=== PATIENT | female | born 2000 | race Caucasian/White ===

== ENCOUNTER 2021-05-13 10:34 | Emergency (ER) | payer OTHER ==
[2021-05-13] MEDS ORDERED: Sodium Chloride 0.9% 1000 ML 1,000 ML IV STA (11:00)
[2021-05-13] MEDS ORDERED: Zofran 4 MG/2 ML VIAL IV ONE (11:00)
[2021-05-13] MEDS ORDERED: DECADRON 10MG INJ. IV ONE (11:01)
[2021-05-13] MEDS ORDERED: Zofran 4 MG/2 ML VIAL ONE (11:12)
[2021-05-13] MEDS ORDERED: DECADRON 10MG INJ. ONE (11:12)
[2021-05-13] MEDS ORDERED: Sodium Chloride 0.9% 1000 ML 1,000 ML ONE (11:12)
[2021-05-13 11:30] LABS: Appearance CLOUDY (CLEAR); Bacteria FEW /HPF (NEGATIVE); Bilirubin NEGATIVE (NEGATIVE); Blood NEGATIVE Ery/ul (0-5); Epithelial Cells MANY /HPF (FEW); Glucose NEGATIVE (NEGATIVE); Ketones NEGATIVE (NEGATIVE); Leukocyte Esterase LARGE (NEGATIVE); Mucus SLIGHT /HPF (NEGATIVE); Nitrite NEGATIVE (NEGATIVE); Protein,Urine Dip NEGATIVE (Negative); Specific Gravity 1.014 (1.005-1.025); Urobilinogen 4 mg/dL (0-1)
[2021-05-13 11:32] LABS: Hematocrit 34.4 % (35-47); Hemoglobin 11.6 gm/dl (12.0-16.0); Mean Cell Volume 91.5 fl (78-100); Mean Corpuscular Hemoglobin 30.9 pg (26-32); Mean Corpuscular Hgb Concent. 33.7 g/dl (32-36); Mean Platelet Volume 10.6 fl (7.5-11.0); Platelet Count 222 K/mm3 (150-450); Red Blood Count 3.76 M/mm3 (4.1-5.4); Red Cell Distribution Width 13.3 % (11.5-14.0); White Blood Count 10.1 K/mm3 (4.0-10.5)
[2021-05-13 11:35] LABS: ALBUMIN 3.5 g/dL (3.5-5.0); ALKALINE PHOSPHATASE 57 U/L (38-126); ANION GAP 11.4 MEQ/L (5-15); CHLORIDE 104 mmol/L (98-107); Calcium 8.8 mg/dL (8.4-10.2); Carbon Dioxide 23 mmol/L (22-30); Creatinine 1 0.29 mg/dL (0.52-1.04); EST GLOMERULAR FILTRATION RATE > 60.0 ML/MIN; Glucose 94 mg/dL (74-106); Potassium 3.3 mmol/L (3.5-5.1); SGOT/AST 26 U/L (14-36); SGPT/ALT 22 U/L (0-35); SODIUM 135 mmol/L (137-145); Total Protein 6.8 g/dL (6.3-8.2)
[2021-05-13 11:44] LABS: BLOOD UREA NITROGEN 2 mg/dL (7-17)
--- NOTE | 2021-05-13 11:47 | ERPHSYRPT ---
- History of Present Illness Time Seen by Provider: 05/13/21 10:37 Source: patient Exam Limitations: no limitations Patient Subjective Stated Complaint: Patient c/o cough x 2 months, worsened this morning. States she tested positive for COVID /. Reports no fevers. Cannot smell. States her throat started hurting this morning. Has a "running nose" and mucus is yellow. Triage Nursing Assessment: Patient to ED with complaints of congestion, cough, and sore throat. Patient breathing easy at this time. VS wnl, occasional wet cough. Breath sounds clear bilaterally. Physician History: Location: generalized Quality: Malaise, sore throat Radiation: none Severity: mild Duration: several weeks Timing: gradual Modifying factors/associated signs and symptoms: Previous positive at home COVID test Patient here with viral pharyngitis in setting of a positive COVID test. Also complains of coughing. Patient is 16 weeks . She has not received the vaccine. She has not seen her PCP for this or her BEHAVIORAL HEALTH COUNSELOR. Timing/Duration: week(s) Severity: mild Modifying Factors: Improves With: other Associated Symptoms: denies symptoms Allergies/Adverse Reactions: amoxicillin [Amoxicillin] Allergy (Mild, Verified 05/13/21 11:01) Penicillins Allergy (Mild, Verified 05/13/21 11:01) Hx Tetanus, Diphtheria Vaccination/Date Given: Yes Hx Influenza Vaccination/Date Given: No Hx Pneumococcal Vaccination/Date Given: No Immunizations Up to Date: Yes Travel Risk - International Travel Have you traveled outside of the country in past 3 weeks: No - Coronavirus Screening Are you exhibiting any of the following symptoms?: Yes Symptoms: Cough: New Onset, Shortness of Breath, Loss of Taste or Smell - Vaccine Status Have you recieved a Covid-19 vaccination: No - Review of Systems Constitutional: No Fever, No Chills Eyes: No Symptoms Ears, Nose, & Throat: No Symptoms, Other (sore throat ) Respiratory: Cough, No Dyspnea Cardiac: No Chest Pain, No Edema, No Syncope Abdominal/Gastrointestinal: No Abdominal Pain, No Nausea, No Vomiting, No Diarrhea Genitourinary Symptoms: No Dysuria Musculoskeletal: No Back Pain, No Neck Pain Skin: No Rash Neurological: No Dizziness, No Focal Weakness, No Sensory Changes Psychological: No Symptoms Endocrine: No Symptoms All Other Systems: Reviewed and Negative - Past Medical History Pertinent Past Medical History: Yes Respiratory History: Asthma - Past Surgical History Past Surgical History: Yes Musculoskeletal: Orthopedic Surgery Other Surgical History: wrist surgery 2011 - Social History Smoking Status: Never smoker Exposure to second hand smoke: Yes Drug Use: none Patient Lives Alone: No - Female History Hx Last Menstrual Period: 01/14/21 Hx Now: Yes Expected Date of Delivery: 10/23/21 Gestational Age: 14 - Nursing Vital Signs Nursing Vital Signs: Initial Vital Signs Temperature 98 F 05/13/21 10:46 Pulse Rate 110 H 05/13/21 10:46 Respiratory Rate 18 05/13/21 10:46 Blood Pressure 151/93 05/13/21 10:46 O2 Sat by Pulse Oximetry 97 05/13/21 10:46 Pain Scale Pain Intensity 0 - Physical Exam General Appearance: no apparent distress, alert Eye Exam: PERRL/EOMI, eyes nml inspection Ears, Nose, Throat Exam: normal ENT inspection, TMs normal, pharynx normal, moist mucous membranes Neck Exam: normal inspection, non-tender, supple, full range of motion Respiratory Exam: normal breath sounds, lungs clear, No respiratory distress Cardiovascular Exam: regular rate/rhythm, normal heart sounds, normal peripheral pulses Gastrointestinal/Abdomen Exam: soft, normal bowel sounds, No tenderness, No mass Back Exam: normal inspection, normal range of motion, No CVA tenderness, No vertebral tenderness Extremity Exam: normal inspection, normal range of motion, pelvis stable Neurologic Exam: alert, oriented x 3, cooperative, normal mood/affect, nml cereb ellar function, nml station & gait, sensation nml, No motor deficits Skin Exam: normal color, warm, dry, No rash Lymphatic Exam: No adenopathy SpO2 Interpretation: normal SpO2: 97 Comments: 05/13/21 11:46 No trismus, able to fully extend neck, normal range of motion of neck without pain. Uvula is midline, no swelling of the mouth, noraml oropharynx. No exudate, no signs of meningitis, no floor of mouth swelling, no hot potato voice on exam. No buccal swelling, no gum bleeding, no signs of tooth abscess/infection. No obvious deformity, sensation intact, 2+ capillary refill, 2 point tactile discrimination intact. 5 out of 5 strength. Full range of motion without pain. Compartments are soft, nontender. Overlying skin shows no tenting, bruising, ecchymosis. - Course Nursing assessment & vital signs reviewed: Yes EKG Interpreted by Me: Sinus Rhythm Ordered Tests: Active Orders 24 hr Category Date Time Status EKG-ER Only STAT Care 05/13/21 11:00 Completed IV Insertion STAT Care 05/13/21 11:00 Completed CBC W DIFF Stat Lab 05/13/21 11:20 Completed CMP Stat Lab 05/13/21 11:20 Completed CULTURE,URINE Stat Lab 05/13/21 11:20 Received Manual Differential NC Stat Lab 05/13/21 11:20 Completed UA W/RFX UR CULTURE Stat Lab 05/13/21 11:20 Completed Medication Summary Discontinued Medications Generic Name Dose Route Start Last Admin Trade Name Freq PRN Reason Stop Dose Admin Dexamethasone Sodium Phosphate 8 mg 05/13/21 11:01 05/13/21 11:13 Dexamethasone Sod Phosphate 10 Mg/Ml IV 05/13/21 11:02 8 mg STAT ONE Administration Dexamethasone Sodium Phosphate Confirm 05/13/21 11:12 Dexamethasone Sod Phosphate 10 Mg/Ml Administered 05/13/21 11:13 Dose 10 mg .ROUTE .STK-MED ONE Sodium Chloride 1,000 mls @ 999 mls/hr 05/13/21 11:00 05/13/21 11:13 Sodium Chloride 0.9% 1000 Ml IV 05/13/21 12:00 999 mls/hr .Q1H1M STA Administration Sodium Chloride Confirm 05/13/21 11:12 Sodium Chloride 0.9% 1000 Ml Administered 05/13/21 11:13 Dose 1,000 mls @ ud .ROUTE .STK-MED ONE Ondansetron HCl 4 mg 05/13/21 11:00 05/13/21 11:14 Ondansetron Hcl 4 Mg/2 Ml Vial IV 05/13/21 11:01 4 mg STAT ONE Administration Ondansetron HCl Confirm 05/13/21 11:12 Ondansetron Hcl 4 Mg/2 Ml Vial Administered 05/13/21 11:13 Dose 4 mg .ROUTE .STK-MED ONE Lab/Rad Data: Laboratory Result Diagrams 05/13/21 11:20 05/13/21 11:20 Laboratory Results 05/13/21 05/13/21 05/13/21 Range/Units 11:20 11:20 11:20 WBC 10.1 (4.0-10.5) K/mm3 RBC 3.76 L (4.1-5.4) M/mm3 Hgb 11.6 L (12.0-16.0) gm/dl Hct 34.4 L (35-47) % MCV 91.5 (78-100) fl MCH 30.9 (26-32) pg MCHC 33.7 (32-36) g/dl RDW 13.3 (11.5-14.0) % Plt Count 222 (150-450) K/mm3 MPV 10.6 (7.5-11.0) fl Segmented Neutrophils 53 (36.0-66.0) % Band Neutrophils 1 (0.0-2.0) % Lymphocytes (Manual) 42 (24-44) % Monocytes (Manual) 3 (0.0-12.0) % Eosinophils (Manual) 1 (0.00-3.0) % Toxic Granulation 1+ Platelet Estimate NORMAL (NORMAL) RBC Morphology NORMAL Sodium 135 L (137-145) mmol/L Potassium 3.3 L (3.5-5.1) mmol/L Chloride 104 (98-107) mmol/L Carbon Dioxide 23 (22-30) mmol/L Anion Gap 11.4 (5-15) MEQ/L BUN 2 L (7-17) mg/dL Creatinine 0.29 L (0.52-1.04) mg/dL Estimated GFR > 60.0 ML/MIN Glucose 94 (74-106) mg/dL Calcium 8.8 (8.4-10.2) mg/dL Total Bilirubin 0.90 (0.2-1.3) mg/dL AST 26 (14-36) U/L ALT 22 (0-35) U/L Alkaline Phosphatase 57 (38-126) U/L Serum Total Protein 6.8 (6.3-8.2) g/dL Albumin 3.5 (3.5-5.0) g/dL Urine Color SAMUEL (YELLOW) Urine Appearance CLOUDY (CLEAR) Urine pH 6.0 (5-6) Ur Specific [place] 1.014 (1.005-1.025) Urine Protein NEGATIVE (Negative) Urine Ketones NEGATIVE (NEGATIVE) Urine Blood NEGATIVE (0-5) [place]/ul Urine Nitrite NEGATIVE (NEGATIVE) Urine Bilirubin NEGATIVE (NEGATIVE) Urine Urobilinogen 4 (0-1) mg/dL Ur Leukocyte Esterase LARGE (NEGATIVE) Urine WBC (Auto) 11-15 (0-5) /HPF Urine RBC (Auto) 6-10 (0-2) /HPF U Epithel Cells (Auto) MANY (FEW) /HPF Urine Bacteria (Auto) FEW (NEGATIVE) /HPF Urine Mucus (Auto) SLIGHT (NEGATIVE) /HPF Urine Culture Reflexed YES (NO) Urine Glucose NEGATIVE (NEGATIVE) mg/dL - Progress Progress: improved Progress Note: 05/13/21 11:46 We will start an IV, obtain basic labs. Will give fluids, steroids. Lungs sound clear. Therefore will not give a breathing treatment or obtain a chest x- ray. In the setting of we also want to avoid radiation. Very low suspicion for pulmonary embolism or other blood clot. No other falls or trauma. 05/13/21 15:31 Patient feels improved with medications here. Plan to discharge patient home at this point time. Follow-up with her PCP. She return here for any new or changing symptoms. Plan of care was discussed with patient and all questions answered. The patient is agreeable to be discharged home and both verbal and printed discharge instructions were provided.The patient agreed to seek outpatient follow up as discussed. The patient was given strict instructions to return to the emergency department for worsening symptoms or any other emergent concerns. The patient verbalized understanding. - Departure Departure Disposition: Home Clinical Impression: Viral pharyngitis Condition: Stable Critical Care Time: No Referrals: RAMA BERNARD MD [Primary Care Provider] - Follow up/PCP as directed Instructions: Cough, Adult (DC) Additional Instructions: See your PCP and BEHAVIORAL HEALTH COUNSELOR for reexam in 24 to 48 hours. Return here for any new or changing symptoms. Follow-up on the urine culture for your urinalysis today with your BEHAVIORAL HEALTH COUNSELOR.
[2021-05-13 12:32] LABS: BAND 1 % (0.0-2.0); Eosinophil 1 % (0.00-3.0); Lymphocytes 42 % (24-44); Monocyte 3 % (0.0-12.0); Neutrophils 53 % (36.0-66.0); Platelet Estimate NORMAL (NORMAL); Total Cells Counted 100; Toxic Granulation 1+
[2021-05-13 12:37] VITALS: BP 120/81; PULSE 93
[2021-05-13 15:32] VITALS: O2SAT 97
== END 2021-05-13 12:54 | disposition home or self-care (01) ==
LOC: ED 10:34
DX: O98.512 Other viral diseases complicating pregnancy, second trimester (principal); Z3A.16 16 weeks gestation of pregnancy; J02.8 Acute pharyngitis due to other specified organisms; B97.29 Other coronavirus as the cause of diseases classified elsewhere; U07.1 COVID-19; R05.9 Cough, unspecified
CPT/HCPCS: 36000; 36415; 80053; 81001; 85025; 87086; 93005; 96374; 96375; 99284; U0003; J1100; J2405

== ENCOUNTER 2021-10-23 11:01 | Inpatient (IN) | payer OTHER ==
[2021-10-23] MEDS ORDERED: TYLENOL EXTRA STRENGTH 500 MG PO PRN (17:00)
[2021-10-23] MEDS ORDERED: PITOCIN 30 UNITS/ LR 500 ML 30 UNITS/500 ML PLAST..BAG IV SCH (17:00)
[2021-10-23] MEDS ORDERED: Ephedrine Sulfate 50 MG/ML IV PRN (17:00)
[2021-10-23] MEDS ORDERED: Zofran 4 MG/2 ML VIAL IV PRN (17:00)
[2021-10-23] MEDS ORDERED: STADOL 2 MG IV PRN (17:00)
[2021-10-23] MEDS ORDERED: Cervidil 10 MG VAG SCH (17:00)
[2021-10-23] MEDS ORDERED: Lactated Ringers 1,000 ML IV ONE (17:00)
[2021-10-23] MEDS ORDERED: BRETHINE 1 MG/ML SQ PRN (17:00)
[2021-10-23] MEDS ORDERED: Nubain 10 MG/ML IV PRN (18:00)
[2021-10-23] MEDS ORDERED: FENTANYL 2 MCG-BUPIV 0.125%-NS 250 ML Epidur 250 ML EPIDURAL SCH (18:00)
[2021-10-23 18:14] LABS: Absolute Neutrophil Ct (ANC) 9.02 x10^3/uL (1.4-6.9); Basophil (Absolute #) 0.04 x10^3/uL (0-0.4); Eosinophil % 0.3 % (0.00-5.0); Eosinophil (Absolute #) 0.04 x10^3/uL (0-0.5); Hematocrit 35.2 % (35-47); Hemoglobin 11.8 g/dL (12.0-16.0); Lymphocyte (Absolute #) 2.93 x10^3/uL (1.0-4.6); Lymphocytes % 22.3 % (24.0-44.0); Mean Cell Volume 92.9 fL (78-100); Mean Corpuscular Hemoglobin 31.1 pg (26-32); Mean Corpuscular Hgb Concent. 33.5 g/dL (32-36); Mean Platelet Volume 11.4 fL (7.5-11.0); Monocytes % 7.6 % (0.0-12.0); Neutrophil % 68.6 % (36.0-66.0); Platelet Count 233 x10^3/uL (150-450); Red Blood Count 3.79 x10^6/uL (4.1-5.4); Red Cell Distribution Width 13.6 % (11.5-14.0); White Blood Count 13.2 x10^3/uL (4.0-10.5)
[2021-10-23 19:01] LABS: ABO TYPING A; Antibody Screen NEGATIVE (NEGATIVE); RH TYPING POSITIVE
[2021-10-23 22:55] LABS: Amphetamine,Urine NEGATIVE (NEGATIVE); Barbiturate,Urine NEGATIVE (NEGATIVE); Benzodiazepine,Urine NEGATIVE (NEGATIVE); Cocaine,Urine NEGATIVE (NEGATIVE); Methadone,Urine NEGATIVE (NEGATIVE); Opiate,Urine NEGATIVE (NEGATIVE); PCP,Urine NEGATIVE (NEGATIVE); THC,Urine NEGATIVE (NEGATIVE)
[2021-10-24] MEDS: Lactated Ringers 1,000 ML IV SCH ×5 (03:30→16:35)
[2021-10-24] MEDS ORDERED: PITOCIN 30 UNITS/ LR 500 ML 30 UNITS/500 ML PLAST..BAG IV SCH (08:00)
[2021-10-24 13:46] LABS: Bacteria FEW /HPF (NEGATIVE); Crystals Unidentified 25-50 /HPF (NEGATIVE); Epithelial Cells RARE /HPF (FEW); Mucus SLIGHT /HPF (NEGATIVE)
[2021-10-24 13:47] LABS: Appearance SLIGHTLY CLOUDY (CLEAR); Bilirubin SMALL (NEGATIVE); Glucose NEGATIVE (NEGATIVE); Ketones TRACE (NEGATIVE); Nitrite NEGATIVE (NEGATIVE); Ph 6.5 (5-6); Protein,Urine Dip 30 (Negative); RBC >101 /HPF (0-2); RBC LARGE Ery/ul (0-5); Urobilinogen >=8.0 mg/dL (0-1)
[2021-10-24 13:48] LABS: Dipstick done @ ? MAIN LAB; Urine Cultured Indicated? YES
[2021-10-24] MEDS ORDERED: Nubain 10 MG/ML IV PRN (16:46)
[2021-10-24] MEDS ORDERED: PERCOCET TABLET 5/325MG PO PRN (16:46)
[2021-10-24] MEDS ORDERED: MORPHINE SULFATE 2 MG INJ IV PRN (16:46)
[2021-10-24] MEDS ORDERED: HOLD NARCOTIC ANALGESICS AND SEDATIVES X24 HR MC PRN (16:46)
[2021-10-24] MEDS ORDERED: BENADRYL 50 MG/ML IV PRN (16:46)
[2021-10-24] MEDS ORDERED: Narcan 0.4 MG/ML IV PRN (16:46)
[2021-10-24] MEDS ORDERED: DEMEROL 50 MG IV PRN ×2 (16:46→18:23)
[2021-10-24] MEDS ORDERED: CLARITIN 10 MG PO PRN (16:46)
[2021-10-24] MEDS ORDERED: SOD CITRATE-CITRIC ACID SOLN PO SCH (17:00)
[2021-10-24] MEDS ORDERED: XYLOCAINE 1% HCL 20 ML MDV IJ PRN (17:00)
[2021-10-24] MEDS ORDERED: Reglan 10 MG/2 ML IV SCH (17:00)
[2021-10-24] MEDS ORDERED: CLINDAMYCIN-D5W 900 MG/50 ML*** 900 MG/50 ML BAG IV SCH (17:00)
[2021-10-24] MEDS ORDERED: Pepcid 20 MG VIAL IV SCH (17:00)
[2021-10-24] MEDS ORDERED: XYLOCAINE 2%/Epi 1:200000 20ML VIAL MPF ONE (17:14)
[2021-10-24] MEDS ORDERED: Pitocin 10 UNITS/ML ONE ×2 (17:16→18:23)
[2021-10-24 17:43] LABS: INR 0.98 (0.8-3.0); PROTIME 10.4 SECONDS (9.4-12.5); PTT 25.5 SECONDS (25.1-36.5)
[2021-10-24] MEDS ORDERED: Astramorph-Pf 5 MG/10 ML ONE (17:47)
[2021-10-24] MEDS ORDERED: Lactated Ringers 1,000 ML IV ONE (18:02)
[2021-10-24] MEDS ORDERED: Marcaine 0.5%/Epinephrine 10 ML ONE (18:09)
[2021-10-24] MEDS ORDERED: SUBLIMAZE 100 MCG/2 ML ONE (18:14)
[2021-10-24] MEDS ORDERED: Versed 2 MG/2 ML Injection ONE (18:14)
[2021-10-24] MEDS ORDERED: TYLENOL EXTRA STRENGTH 500 MG PO PRN (18:23)
[2021-10-24] MEDS ORDERED: Mylicon 80MG PO PRN (18:23)
[2021-10-24] MEDS ORDERED: Dermoplast Spray TP PRN (18:23)
[2021-10-24] MEDS ORDERED: Dulcolax 10 MG SUPP PR PRN (18:23)
[2021-10-24] MEDS ORDERED: Ambien 10 MG PO PRN (18:23)
[2021-10-24] MEDS ORDERED: TORAdol 30 mg Injection ONE (18:23)
[2021-10-24] MEDS ORDERED: TUCKS TP PRN (18:23)
[2021-10-24] MEDS ORDERED: CORTISONE 1% CREAM TP PRN (18:23)
[2021-10-24] MEDS ORDERED: Anucort-HC SUPPOSITORY PR PRN (18:23)
[2021-10-24] MEDS ORDERED: LANSINOH 40 GM TOP PRN (18:23)
[2021-10-24] MEDS ORDERED: Dextrose 5%-Lr IV Solution 1000 ML 1,000 ML IV ONE (21:58)
[2021-10-24] MEDS: Dextrose 5%-Lr IV Solution 1000 ML 1,000 ML IV SCH (22:09)
[2021-10-24] MEDS ORDERED: Ambien 5 MG Tablet ONE (22:12)
[2021-10-25 04:55] LABS: Absolute Neutrophil Ct (ANC) 12.97 x10^3/uL (1.4-6.9); Basophil (Absolute #) 0.03 x10^3/uL (0-0.4); Eosinophil % 0.1 % (0.00-5.0); Eosinophil (Absolute #) 0.01 x10^3/uL (0-0.5); Hematocrit 30.9 % (35-47); Hemoglobin 10.1 g/dL (12.0-16.0); Lymphocyte (Absolute #) 2.37 x10^3/uL (1.0-4.6); Lymphocytes % 13.9 % (24.0-44.0); Mean Cell Volume 93.6 fL (78-100); Mean Corpuscular Hemoglobin 30.6 pg (26-32); Mean Corpuscular Hgb Concent. 32.7 g/dL (32-36); Mean Platelet Volume 11.1 fL (7.5-11.0); Monocyte (Absolute #) 1.56 x10^3/uL (0.0-1.3); Monocytes % 9.2 % (0.0-12.0); Platelet Count 195 x10^3/uL (150-450); Red Cell Distribution Width 13.7 % (11.5-14.0)
[2021-10-25] MEDS: Docusate Sodium 100 MG PO SCH ×3 (05:22→21:05)
[2021-10-25] MEDS: Dextrose 5%-Lr IV Solution 1000 ML 1,000 ML IV SCH ×2 (05:59→13:51)
[2021-10-25 07:20] LABS: HIV Screen 4th Generation wRfx Non Reactive (Non Reactive)
[2021-10-25 07:24] LABS: Slide Review 1 YES
--- NOTE | 2021-10-25 08:15 | PCM.NOTE ---
Date and Time: 10/25/21812 Subjective Assessment: nursing reports low grade fever overnight, there was some question of foul odor when AROM. no overt chorio present at section. pain is controlled, mild lochia. has not been out of bed as of yet Objective Exam General Appearance: no apparent distress, alert Respiratory Exam: normal breath sounds, lungs clear, No respiratory distress Cardiovascular Exam: regular rate/rhythm, normal heart sounds Gastrointestinal/Abdomen Exam: soft, other (dressing clean, dry, intact. fundus firm below umbilicus), No tenderness, No mass Extremity Exam: normal inspection, normal range of motion OBJECTIVE DATA Vital Signs: Vital Signs - 24 hr Temp Pulse Resp BP BP Pulse Ox 10/25/21 06:53 93 H 18 130/62 94 L 10/25/21 06:00 98 H 18 134/67 95 10/25/21 05:00 95 10/25/21 03:58 99 F 100 H 20 129/68 97 10/25/21 03:00 95 10/25/21 02:00 112 H 18 123/63 98 10/25/21 01:00 95 10/25/21 00:00 95 10/24/21 23:00 0.1 F 90 18 123/60 97 10/24/21 22:00 99 F 90 18 120/56 97 10/24/21 21:00 98.6 F 109 H 20 113/58 97 10/24/21 20:30 98.5 F 116 H 20 116/56 97 10/24/21 20:00 98.5 F 103 H 18 128/60 97 10/24/21 19:45 98.5 F 103 H 18 128/60 97 10/24/21 19:30 98.5 F 103 H 18 128/60 97 10/24/21 19:15 100.5 F 128 H 18 142/62 98 10/24/21 17:30 98.3 F 80 16 122/67 98 10/24/21 17:24 98.3 F 85 16 122/77 98 10/24/21 17:00 98.3 F 80 16 122/67 98 10/24/21 16:53 98.3 F 85 16 122/77 98 10/24/21 16:45 98.3 F 90 16 122/77 98 10/24/21 16:30 98.3 F 85 16 122/77 98 10/24/21 16:15 99.1 F 93 H 16 114/64 98 10/24/21 16:00 98.3 F 85 16 130/78 122/77 98 10/24/21 15:45 99.1 F 94 H 16 117/69 98 10/24/21 15:30 99.1 F 117 H 16 117/69 97 10/24/21 15:15 99.1 F 94 H 16 121/73 97 10/24/21 15:00 99.1 F 93 H 16 114/76 97 10/24/21 14:45 99.1 F 104 H 18 114/76 98 10/24/21 14:30 99.1 F 92 H 20 103/64 98 10/24/21 14:15 99.1 F 93 H 20 107/60 99 10/24/21 14:00 83 20 115/66 99 10/24/21 13:45 72 20 110/62 99 10/24/21 13:30 78 20 106/56 99 10/24/21 13:15 91 H 18 111/67 100 10/24/21 12:45 90 18 111/69 100 10/24/21 12:30 89 18 111/76 100 10/24/21 12:15 81 18 102/65 100 10/24/21 12:00 99 F 77 18 99/61 100/60 100 10/24/21 11:45 99 F 89 18 95/57 100 10/24/21 11:30 99 F 90 20 91/56 100 10/24/21 11:15 99 F 85 20 138/87 99 10/24/21 11:00 97.6 F 81 20 142/83 99 10/24/21 10:45 97.6 F 72 18 133/92 99 10/24/21 10:30 97.6 F 71 16 137/93 99 10/24/21 10:15 97.6 F 74 16 135/87 99 10/24/21 10:00 97.6 F 76 16 115/58 99 10/24/21 09:45 97.6 F 76 16 115/58 99 10/24/21 09:30 97.6 F 74 16 112/70 99 10/24/21 09:15 97.6 F 77 16 124/73 99 10/24/21 09:00 97.6 F 76 16 125/75 99 10/24/21 08:45 97.6 F 75 16 122/76 99 10/24/21 08:30 97.6 F 83 16 120/73 99 10/24/21 08:15 97.6 F 76 16 126/87 99 Pain Assessment - Last Documented Pain Intensity [Bilateral] 0 Pain Intensity 0 Pain Scale Used 0-10 Pain Scale Intake and Output: Intake & Output 10/22/21 10/23/21 10/24/21 10/25/21 11:59 11:59 11:59 11:59 Intake Total 2300 4960 Output Total 1850 Balance 2300 3110 Weight 107.048 kg 107.048 kg Lab Results: Lab Results-Last 24 Hours 10/23/21 10/24/21 10/24/21 Range/Units 17:58 13:41 17:27 WBC (4.0-10.5) x10^3/uL RBC (4.1-5.4) x10^6/uL Hgb (12.0-16.0) g/dL Hct (35-47) % MCV (78-100) fL MCH (26-32) pg MCHC (32-36) g/dL RDW (11.5-14.0) % Plt Count (150-450) x10^3/uL MPV (7.5-11.0) fL Gran % (36.0-66.0) % Immature Gran % (Auto) (0.00-0.4) % Nucleat RBC Rel Count (0.00-0.1) % Eos # (Auto) (0-0.5) x10^3/uL Immature Gran # (Auto) (0.00-0.03) x10^3u/L Absolute Lymphs (auto) (1.0-4.6) x10^3/uL Absolute Monos (auto) (0.0-1.3) x10^3/uL Absolute Nucleated RBC (0.00-0.01) x10^3u/L Lymphocytes % (24.0-44.0) % Monocytes % (0.0-12.0) % Eosinophils % (0.00-5.0) % Basophils % (0.0-0.4) % Absolute Granulocytes (1.4-6.9) x10^3/uL Basophils # (0-0.4) x10^3/uL PT 10.4 (9.4-12.5) SECONDS INR 0.98 (0.8-3.0) APTT 25.5 (25.1-36.5) SECONDS Urinalys Dipstick Clnc MAIN LAB Urine Color YELLOW (YELLOW) Urine Appearance SLIGHTLY CLOUDY (CLEAR) Urine pH 6.5 (5-6) Ur Specific [place] 1.020 (1.005-1.025) POC Urine Protein Conf 30 (Negative) Urine Ketones TRACE (NEGATIVE) Urine Nitrite NEGATIVE (NEGATIVE) Urine Bilirubin SMALL (NEGATIVE) Urine Urobilinogen >=8.0 (0-1) mg/dL Urine Leukocytes NEGATIVE (NEGATIVE) Urine WBC (Auto) 11-15 (0-5) /HPF Urine RBC (Auto) >101 (0-2) /HPF U Epithel Cells (Auto) RARE (FEW) /HPF Urine Bacteria (Auto) FEW (NEGATIVE) /HPF Urine RBC LARGE (0-5) Braeden/ul Unidentified Crystals 25-50 (NEGATIVE) /HPF Urine Mucus (Auto) SLIGHT (NEGATIVE) /HPF Ur Culture Indicated? YES Urine Glucose NEGATIVE (NEGATIVE) mg/dL Hep Bs Antigen Pending HIV 1&2 Ab/P24 Ag 4thGn Non Reactive (Non Reactive) Slides for Path Review 10/25/21 Range/Units 04:47 WBC 17.0 H (4.0-10.5) x10^3/uL RBC 3.30 L (4.1-5.4) x10^6/uL Hgb 10.1 L (12.0-16.0) g/dL Hct 30.9 L (35-47) % MCV 93.6 (78-100) fL MCH 30.6 (26-32) pg MCHC 32.7 (32-36) g/dL RDW 13.7 (11.5-14.0) % Plt Count 195 (150-450) x10^3/uL MPV 11.1 H (7.5-11.0) fL Gran % 76.0 H (36.0-66.0) % Immature Gran % (Auto) 0.6 H (0.00-0.4) % Nucleat RBC Rel Count 0.0 (0.00-0.1) % Eos # (Auto) 0.01 (0-0.5) x10^3/uL Immature Gran # (Auto) 0.10 H (0.00-0.03) x10^3u/L Absolute Lymphs (auto) 2.37 (1.0-4.6) x10^3/uL Absolute Monos (auto) 1.56 H (0.0-1.3) x10^3/uL Absolute Nucleated RBC 0.00 (0.00-0.01) x10^3u/L Lymphocytes % 13.9 L (24.0-44.0) % Monocytes % 9.2 (0.0-12.0) % Eosinophils % 0.1 (0.00-5.0) % Basophils % 0.2 (0.0-0.4) % Absolute Granulocytes 12.97 H (1.4-6.9) x10^3/uL Basophils # 0.03 (0-0.4) x10^3/uL PT (9.4-12.5) SECONDS INR (0.8-3.0) APTT (25.1-36.5) SECONDS Urinalys Dipstick Clnc Urine Color (YELLOW) Urine Appearance (CLEAR) Urine pH (5-6) Ur Specific [place] (1.005-1.025) POC Urine Protein Conf (Negative) Urine Ketones (NEGATIVE) Urine Nitrite (NEGATIVE) Urine Bilirubin (NEGATIVE) Urine Urobilinogen (0-1) mg/dL Urine Leukocytes (NEGATIVE) Urine WBC (Auto) (0-5) /HPF Urine RBC (Auto) (0-2) /HPF U Epithel Cells (Auto) (FEW) /HPF Urine Bacteria (Auto) (NEGATIVE) /HPF Urine RBC (0-5) Braeden/ul Unidentified Crystals (NEGATIVE) /HPF Urine Mucus (Auto) (NEGATIVE) /HPF Ur Culture Indicated? Urine Glucose (NEGATIVE) mg/dL Hep Bs Antigen HIV 1&2 Ab/P24 Ag 4thGn (Non Reactive) Slides for Path Review YES Multi-Disciplinary Progress Notes: Multi-Disciplinary Progress Notes 10/24/21 18:09 Respiratory Note by Ingrid Camacho FOR PER PROTOCOL. NO COMPLICATIONS Initialized on 10/24/21 18:09 - END OF NOTE Assessment/Plan (1) delivery delivered Current Visit: Yes Status: Acute Code(s): O82 - ENCOUNTER FOR DELIVERY WITHOUT INDICATION (2) Leukocytosis Current Visit: Yes Status: Acute Assessment & Plan: with low grade fever will treat with IV cleocin, repeat cbc tomorrow Code(s): D72.829 - ELEVATED WHITE BLOOD CELL COUNT, UNSPECIFIED
[2021-10-25] MEDS: FERREX 150 PO SCH (08:36)
[2021-10-25] MEDS: CLINDAMYCIN-D5W 600 MG/50 ML*** 600 MG/50 ML BAG IV SCH ×3 (08:37→22:01)
[2021-10-25] MEDS ORDERED: Adacel Vial IM ONE (09:00)
--- NOTE | 2021-10-25 09:28 | OP ---
SURGERY DATE: 10/24/2021 SURGERY TIME: 1739 PREOPERATIVE DIAGNOSES: 1. FAILURE TO PROGRESS IN LABOR. POSTOPERATIVE DIAGNOSES: 1. FAILURE TO PROGRESS IN LABOR. 2. ASYNCLITIC PRESENTATION. PROCEDURE: 1. Primary low transverse section. SURGEON: Humphrey Rodriguez M.D. ANESTHESIA: Spinal. ESTIMATED BLOOD LOSS: 400 ml. URINE: 200 ml of clear urine. SPECIMEN: 1. Placenta was sent for pathology. DESCRIPTION OF PROCEDURE: After informed written consent was obtained, the patient was taken to the OR. She had her previously placed laboring epidural dosed for surgery and then she was prepped and draped in the usual sterile fashion. After adequate level of anesthesia was assessed, a low transverse skin incision was made by knife and carried down through the subcutaneous fat to the level of the fascia. The fascia was nicked on both sides of the midline and extended horizontal using curved Chaudhari scissors. The superior free edge of the fascia was then grasped with Ian clamps and the underlying rectus muscles were dissected free. The same was repeated inferiorly. Next, the peritoneal cavity was opened and extended horizontal in a blunt fashion. Bladder blade was inserted and a bladder flap was reflected over the lower uterine segment. A horizontal uterine incision was made by knife and carried down to the level of the amniotic membranes which were carefully artificially ruptured and the incision was extended horizontal. A viable female was delivered from the vertex presentation with significant caput on the left parietal region of the scalp consistent with asynclitic presentation which was suspected prior to coming to the OR. The cord was clamped and cut and she was handed off to the awaiting nursery team with a good strong cry immediately after delivery. The placenta was manually extracted and the uterus was exteriorized. The uterine cavity was sponge curetted clean with a Lap sponge. Then, the uterine incision was closed with #1 chromic in a running, locked fashion. Good closure and good hemostasis were achieved at this level. The posterior cul-de-sac was wiped free of blood and clot with a moist Lap sponge and the uterus was returned to the peritoneal cavity. Lateral gutters were wiped free of blood and clot. There was a small area of oozing in the medial aspect of the uterine incision which was remedied with 2-0 Vicryl figure of 8 suture with good hemostasis achieved. Next, the fascia was closed with 0 Vicryl in a running fashion. Good closure and good hemostasis were achieved at that level. Subcutaneous fat was irrigated with warm, sterile saline. Any areas of bleeding were cauterized with electrocautery. Finally, the skin layer was closed with 4-0, undyed Vicryl in a running subcuticular fashion. Steri-Strips and occlusive dressing were placed over the incision and the patient was transferred to the recovery room in good condition.
[2021-10-25 10:03] LABS: HBsAg Screen Negative (Negative)
[2021-10-25] MEDS: NORCO 5/325 MG PO PRN ×2 (10:24→21:04)
[2021-10-25] MEDS: MOTRIN 400 MG PO PRN ×2 (12:11→23:09)
[2021-10-25] MEDS ORDERED: Sodium Chloride 0.9% 100 ML IV ONE (21:58)
[2021-10-26] MEDS: NORCO 5/325 MG PO PRN ×3 (03:11→15:13)
[2021-10-26] MEDS: MOTRIN 400 MG PO PRN (05:54)
[2021-10-26] MEDS: CLINDAMYCIN-D5W 600 MG/50 ML*** 600 MG/50 ML BAG IV SCH (05:54)
[2021-10-26 06:21] LABS: Absolute Neutrophil Ct (ANC) 10.88 x10^3/uL (1.4-6.9); Basophil (Absolute #) 0.04 x10^3/uL (0-0.4); Eosinophil % 0.8 % (0.00-5.0); Eosinophil (Absolute #) 0.13 x10^3/uL (0-0.5); Hematocrit 30.7 % (35-47); Lymphocyte (Absolute #) 2.72 x10^3/uL (1.0-4.6); Lymphocytes % 17.7 % (24.0-44.0); Mean Cell Volume 95.3 fL (78-100); Mean Corpuscular Hemoglobin 31.1 pg (26-32); Mean Corpuscular Hgb Concent. 32.6 g/dL (32-36); Mean Platelet Volume 11.6 fL (7.5-11.0); Monocyte (Absolute #) 1.43 x10^3/uL (0.0-1.3); Monocytes % 9.3 % (0.0-12.0); Neutrophil % 71.1 % (36.0-66.0); Platelet Count 187 x10^3/uL (150-450); Red Blood Count 3.22 x10^6/uL (4.1-5.4); Red Cell Distribution Width 13.9 % (11.5-14.0); White Blood Count 15.3 x10^3/uL (4.0-10.5)
--- NOTE | 2021-10-26 08:44 | PCM.DS ---
Discharge Summary Date of Admission: 10/24/21 10:14 Admitting Physician: RAMA BERNARD Consults: Consults on Case 10/24/21 16:47 Notify Anesthesia Provider PRN Notify Physician OF ADMISSION 10/25/21 08:16 Navigation ONCE Primary Care Provider: RAMA BERNARD Allergies Allergies amoxicillin [Amoxicillin] Allergy (Mild, Verified 10/23/21 19:47) Penicillins Allergy (Mild, Verified 10/23/21 19:47) Hospital Summary - Hospital Course Hospital Course: patient had primary due to failure to progress at 40wks with induction. had a low grade fever postop with mild elevation of white blood cell count. - Vitals & Intake/Output Vital Signs: Vital Signs Temperature 97.4 F 10/26/21 08:00 Pulse Rate 82 10/26/21 08:00 Respiratory Rate 18 10/26/21 08:00 Blood Pressure 127/68 10/26/21 08:00 O2 Sat by Pulse Oximetry 99 10/26/21 03:56 Intake & Output: Intake & Output 10/23/21 10/24/21 10/25/21 10/26/21 11:59 11:59 11:59 11:59 Intake Total 2300 4960 3680 Output Total 2825 1550 Balance 2300 2135 2130 Weight 107.048 kg 107.048 kg - Lab Result Diagrams: 10/26/21 06:00 Lab Results-Last 24 Hrs: Lab Results-Last 24 Hours 10/23/21 10/26/21 Range/Units 17:58 06:00 WBC 15.3 H (4.0-10.5) x10^3/uL RBC 3.22 L (4.1-5.4) x10^6/uL Hgb 10.0 L (12.0-16.0) g/dL Hct 30.7 L (35-47) % MCV 95.3 (78-100) fL MCH 31.1 (26-32) pg MCHC 32.6 (32-36) g/dL RDW 13.9 (11.5-14.0) % Plt Count 187 (150-450) x10^3/uL MPV 11.6 H (7.5-11.0) fL Gran % 71.1 H (36.0-66.0) % Immature Gran % (Auto) 0.8 H (0.00-0.4) % Nucleat RBC Rel Count 0.0 (0.00-0.1) % Eos # (Auto) 0.13 (0-0.5) x10^3/uL Immature Gran # (Auto) 0.13 H (0.00-0.03) x10^3u/L Absolute Lymphs (auto) 2.72 (1.0-4.6) x10^3/uL Absolute Monos (auto) 1.43 H (0.0-1.3) x10^3/uL Absolute Nucleated RBC 0.00 (0.00-0.01) x10^3u/L Lymphocytes % 17.7 L (24.0-44.0) % Monocytes % 9.3 (0.0-12.0) % Eosinophils % 0.8 (0.00-5.0) % Basophils % 0.3 (0.0-0.4) % Absolute Granulocytes 10.88 H (1.4-6.9) x10^3/uL Basophils # 0.04 (0-0.4) x10^3/uL Hep Bs Antigen Negative (Negative) Micro Results-Entire Visit: Microbiology 10/24/21 13:41 Urine Culture - Final Catherized NO GROWTH - Procedures and Test Procedures and Tests throughout Hospitalization: Therapy Orders & Screens 10/24/21 18:10 Standby ROUTINE Comment: Diagnosis: IUP Discharge Exam General Appearance: no apparent distress, alert Respiratory Exam: normal breath sounds, lungs clear, No respiratory distress Cardiovascular Exam: regular rate/rhythm, normal heart sounds Gastrointestinal/Abdomen Exam: soft, other (incision clean, dry, intact and well approximated), No tenderness, No mass Extremity Exam: normal inspection, normal range of motion Final Diagnosis/Problem List - Final Discharge Diagnosis/Problem (1) delivery delivered Current Visit: Yes Status: Acute Code(s): O82 - ENCOUNTER FOR DELIVERY WITHOUT INDICATION (2) Leukocytosis Current Visit: Yes Status: Acute Assessment & Plan: improved with IV cleocin, continue po x 5 more days Code(s): D72.829 - ELEVATED WHITE BLOOD CELL COUNT, UNSPECIFIED - Discharge Disposition: Home, Self-Care Condition: Stable Prescriptions: New clindamycin HCL [Clindamycin HCl] 300 mg PO TID #15 cap Hydrocodone/Acetaminophen [Hydrocodone-Acetamin 5-325 mg] 1 tab PO Q6HPRN PRN #28 tablet MDD 4 PRN Reason: Pain Continue Vits96/Iron Fum/Folic [ Tablet] 1 each PO DAILY Discontinued Ferrous Sulfate [Iron] 325 mg PO DAILY Follow up with: RAMA BERNARD MD [Primary Care Provider] -
[2021-10-26] MEDS: FERREX 150 PO SCH (10:00)
[2021-10-26] MEDS: Docusate Sodium 100 MG PO SCH (10:00)
[2021-10-26 16:31] VITALS: BP 132/75; PULSE 96; O2SAT 97
== END 2021-10-26 16:00 | disposition home or self-care (01) | DRG 788 ==
LOC: OB 16:55 → OBSVTOIN 10-24 10:14 → OB 10-24 10:14
PROVIDERS: ADMIT Family Medicine; ATTEND Family Medicine
PROC: 10D00Z1 Extraction of Products of Conception, Low, Open Approach (ICD-10-PCS; principal; 2021-10-24)
DX: O62.9 Abnormality of forces of labor, unspecified (principal); O64.8XX0 Obstructed labor due to other malposition and malpresentation, not applicable or unspecified; Z37.0 Single live birth; Z3A.40 40 weeks gestation of pregnancy; D72.829 Elevated white blood cell count, unspecified; R50.9 Fever, unspecified; Z20.828 Contact with and (suspected) exposure to other viral communicable diseases
CPT/HCPCS: 36415; 62322; 64488; 76937; 76942; 80307; 81003; 81015; 85025; 85610; 85730; 86850; 86900; 86901; 87086; 87340; 87389; 90471; 90715; 94799; G0378; J1885; J2250; J2274; J2590; J3010; L0625; A9270-GY

== ENCOUNTER 2022-01-28 18:17 | Emergency (ER) | payer OTHER ==
--- NOTE | 2022-01-28 19:11 | ERPHSYRPT ---
- History of Present Illness Time Seen by Provider: 01/28/22 19:11 Source: patient Exam Limitations: no limitations Physician History: This is a 22-year-old white female who has had recurrent abscesses in the chest, axilla, breast and groin area. She has never been diagnosed with hidradenitis suppurativa. She has an appointment to see a machine sweeper brush maker this coming April 2022. Patient is allergic to penicillin. In the last 2 days she has noticed boil and abscess that was increasing in size and tenderness and redness on the right of central chest wall. She is not any fevers. Timing/Duration: day(s) (2), worse Quality: painful Severity: mild (Monitor) Location: other (Skin of the chest wall on the right of midline) Possible Causes: other (Hidradenitis suppurativa) Associated Symptoms: other (Redness and tenderness and warmth) Allergies/Adverse Reactions: amoxicillin [Amoxicillin] Allergy (Mild, Verified 01/28/22 19:40) Penicillins Allergy (Mild, Verified 01/28/22 19:40) Hx Tetanus, Diphtheria Vaccination/Date Given: Yes Hx Influenza Vaccination/Date Given: No Hx Pneumococcal Vaccination/Date Given: No Travel Risk - International Travel Have you traveled outside of the country in past 3 weeks: No - Coronavirus Screening Are you exhibiting any of the following symptoms?: No Close contact with a COVID-19 positive Pt in past 14-21 Days: No - Vaccine Status Have you recieved a Covid-19 vaccination: No - Review of Systems Constitutional: No Symptoms Eyes: No Symptoms Ears, Nose, & Throat: No Symptoms Respiratory: No Symptoms Cardiac: No Symptoms Abdominal/Gastrointestinal: No Symptoms, Appetite Changes Genitourinary Symptoms: No Symptoms, Other Skin: Cellulitis, Other (Abscess right of midline chest wall) Neurological: No Symptoms Psychological: No Symptoms Endocrine: No Symptoms Hematologic/Lymphatic: No Symptoms Immunological/Allergic: No Symptoms All Other Systems: Reviewed and Negative - Past Medical History Pertinent Past Medical History: Yes Neurological History: No Pertinent History ENT History: No Pertinent History Cardiac History: No Pertinent History Respiratory History: No Pertinent History Endocrine Medical History: No Pertinent History Musculoskeletal History: No Pertinent History GI Medical History: No Pertinent History History: No Pertinent History Psycho-Social History: No Pertinent History Female Reproductive Disorders: No Pertinent History Other Medical History: Right Wrist Fracture with surgery - Past Surgical History Past Surgical History: Yes Neuro Surgical History: No Pertinent History Cardiac: No Pertinent History Respiratory: No Pertinent History Gastrointestinal: No Pertinent History Genitourinary: No Pertinent History Musculoskeletal: Other Female Surgical History: No Pertinent History Other Surgical History: Right Wrist - Social History Smoking Status: Never smoker Exposure to second hand smoke: No Drug Use: none Patient Lives Alone: No - Nursing Vital Signs Nursing Vital Signs: Initial Vital Signs Temperature 98.3 F 01/28/22 19:28 Pulse Rate 72 01/28/22 19:28 Respiratory Rate 16 01/28/22 19:28 Blood Pressure 123/76 01/28/22 19:28 O2 Sat by Pulse Oximetry 100 01/28/22 19:28 Pain Scale Pain Intensity 10 - Physical Exam General Appearance: no apparent distress, alert, anxiety Eye Exam: PERRL/EOMI, eyes nml inspection Ears, Nose, Throat Exam: normal ENT inspection, moist mucous membranes Neck Exam: normal inspection, non-tender, supple, full range of motion Respiratory Exam: normal breath sounds, airway intact, No chest tenderness, No respiratory distress Gastrointestinal/Abdomen Exam: No tenderness Pelvic Exam: not done Rectal Exam: not done Back Exam: normal inspection, normal range of motion, No CVA tenderness, No vertebral tenderness Extremity Exam: normal inspection, normal range of motion, pelvis stable Neurologic Exam: alert, oriented x 3, cooperative, livery car driver II-XII nml as tested, normal mood/affect, nml cerebellar function, nml station & gait, sensation nml Skin Exam: other (Cellulitis and abscess chest wall with associated small satellite skin lesions) Lymphatic Exam: No adenopathy SpO2 Interpretation: normal Procedures - Incision and Drainage Time of Procedure: 20:25 Timeout: Performed Site: Chest wall. Anesthesia: 1% Lidocaine cc's of anesthesia: 3 Blade Size: 15 I & D Procedure: betadine prep, culture obtained, irrigated with normal saline Results: moderate amount pus - Course Nursing assessment & vital signs reviewed: Yes Ordered Tests: Active Orders 24 hr Category Date Time Status Wound Care STAT Care 01/28/22 20:05 Active CULTURE,WOUND Stat Lab 01/28/22 20:05 Ordered Medication Summary Discontinued Medications Generic Name Dose Route Start Last Admin Trade Name Freq PRN Reason Stop Dose Admin Hydrocodone Bitart/Acetaminophen 1 tab 01/28/22 20:05 01/28/22 20:15 Hydrocodone/Apap 5/325 Mg Tablet PO 01/28/22 20:06 1 tab STAT ONE Administration Hydrocodone Bitart/Acetaminophen 2 tab 01/28/22 20:06 Hydrocodone/Apap 5/325 Mg Tablet PO 01/28/22 20:07 SENT HOME W/ PATIENT ONE Hydrocodone Bitart/Acetaminophen Confirm 01/28/22 20:14 Hydrocodone/Apap 5/325 Mg Tablet Administered 01/28/22 20:15 Dose 1 tab .ROUTE .STK-MED ONE Doxycycline Hyclate 100 mg 01/28/22 20:30 Doxycycline Hyclate 100 Mg Tablet PO 01/28/22 20:31 STAT ONE Ibuprofen 400 mg 01/28/22 20:05 01/28/22 20:15 Ibuprofen 400 Mg Tablet PO 01/28/22 20:06 400 mg STAT ONE Administration Ibuprofen Confirm 01/28/22 20:14 Ibuprofen 400 Mg Tablet Administered 01/28/22 20:15 Dose 400 mg .ROUTE .STK-MED ONE Lidocaine HCl 5 ml 01/28/22 20:05 01/28/22 20:15 Lidocaine Hcl 1% 20 Ml Mdv 20 Ml Ml IJ 01/28/22 20:06 5 ml STAT ONE Administration Lidocaine HCl Confirm 01/28/22 20:10 Lidocaine Hcl 1% 20 Ml Mdv 20 Ml Ml Administered 01/28/22 20:11 Dose 3 ml .ROUTE .STK-MED ONE Trimethoprim/Sulfamethoxazole 1 tab 01/28/22 20:07 01/28/22 20:20 Smz/Tmp Ds Tablet 1 Tablet PO 01/28/22 20:08 Not Given STAT ONE Trimethoprim/Sulfamethoxazole Confirm 01/28/22 20:14 Smz/Tmp Ds Tablet 1 Tablet Administered 01/28/22 20:15 Dose 1 tab PO .STK-MED ONE - Progress Progress: improved Counseled pt/family regarding: diagnosis, need for follow-up - Departure Departure Disposition: Home Clinical Impression: Hidradenitis suppurativa Condition: Stable Critical Care Time: No Referrals: RAMA BERNARD MD [Primary Care Provider] - Follow up/PCP as directed Additional Instructions: When you go home tonight wash the site and rinse out in the shower. Blot dry use a hairdryer and cover the wound with a bandage. Do this daily. Make sure you have expressed the area as discussed. Follow-up with Dr. Bernard's office tomorrow for further evaluation and management. Keep your appointment with your machine sweeper brush maker Prescriptions: Hydrocodone/APAP 5/325 [Treadwell 5/325 mg] 1 each PO Q8H PRN PRN #6 tablet MDD 3 PRN Reason: Pain Doxycycline Hyclate 100 mg [Vibramycin 100 MG] 100 mg PO BID #14 tab
[2022-01-28 19:39] VITALS: O2SAT 100
[2022-01-28] MEDS ORDERED: MOTRIN 400 MG PO ONE (20:05)
[2022-01-28] MEDS ORDERED: NORCO 5/325 MG PO ONE ×2 (20:05→20:06)
[2022-01-28] MEDS ORDERED: XYLOCAINE 1% HCL 20 ML MDV IJ ONE (20:05)
[2022-01-28] MEDS ORDERED: XYLOCAINE 1% HCL 20 ML MDV ONE (20:10)
[2022-01-28] MEDS ORDERED: MOTRIN 400 MG ONE (20:14)
[2022-01-28] MEDS ORDERED: NORCO 5/325 MG ONE ×2 (20:14→20:51)
[2022-01-28] MEDS ORDERED: BACTRIM DS TABLET PO ONE (20:14)
[2022-01-28] MEDS: BACTRIM DS TABLET PO ONE ×2 (20:15→20:20)
[2022-01-28] MEDS ORDERED: Vibramycin 100 MG PO ONE (20:30)
[2022-01-28] MEDS ORDERED: Vibramycin 100 MG ONE (20:51)
[2022-01-28 21:20] VITALS: BP 126/79; PULSE 65
== END 2022-01-28 21:19 | disposition home or self-care (01) ==
LOC: ED 18:17
DX: L73.2 Hidradenitis suppurativa (principal); L02.213 Cutaneous abscess of chest wall; Z79.891 Long term (current) use of opiate analgesic; Z28.310 Unvaccinated for COVID-19
CPT/HCPCS: 10060; 87070; 96372; 99283; A9270-GY